=== PATIENT | male | born 1960 | race Caucasian/White ===

== ENCOUNTER → 2017-02-10 | Outpatient (CLI) | payer MEDICARE, OTHER ==
[~2017-02-10] MED LIST: AMITIZA24 MCG PO; ATARAX PO; BACID PO; BACITRACIN3.5 G1 TOP; CALCIUM CITRATE1 T12 PO; CARAFATE PO; CENTANY30 G1 TP; CLARITIN10 M2 PO; FLONASE 0.05% N16 G1; GABAPENTIN300 M2 PO; LACTULOSE10 G/15 ML PO; LEVOTHROID50 MCG PO; LOPID600 MG PO; MIACALCIN4 ML; NEXIUM20 MG PO; PAXIL PO; POLYETHYLENE G527 GM; POLYETHYLENE GLY1 GM MC; PRILOSEC PO; PRILOSEC20 MG PO; PROZAC10 MG PO; SENNA8.6 M1 PO; TRIDESILON 0.0515 G2 EXT; VASOTEC; VASOTEC PO; VIT D PO; [UNRECOGNIZED DRUG - REMARK]
--- NOTE | ~2017-02-10 | CT4 ---
[facility] A Service of [facility] & [facility] RADIOLOGY TEXT RESULTS PATIENT: RADHA WASHBURN LOCATION: [facility] : 56 UNIT #: [id number] AGE: [address]: ELMA BALDERAS SEX: M ORDER DR: [id number] [facility] [address] [place], [place] [address] [id number] O MR#: [id number] Acc #: [id number] NAME: RADHA WASHBURN : 1960 SEX: M STUDY DATE/TIME: 02/10/2017 13:42 UNIT: [facility] ROOM: STUDY DESCRIPTION: CT Abd and Pelv Wo Cont Attending Physician: Elma Balderas Referring Physician: Elma Balderas Ordering Physician: Staff Doctor Not On Primary Care Physician: Lyndon Servin Sr., M.D. MEDICAL IMAGING REPORT This report is preliminary unless electronic signature is present EXAM Abdomen and pelvis CT, no contrast. DATE OF EXAM 02/10/2017 INDICATIONS 56-year-old male with a history of renal stones. 6-month follow up of renal stones. History of malignancy and seizures. [place] patient. TECHNIQUE Noncontrast CT of the abdomen and pelvis was performed and compared with 07/30/2016. NOTE: This CT exam was performed with one or more of the following radiation dose reduction techniques: automatic exposure control, adjustment of mA and/or kV according to patient size, and iterative reconstruction. FINDINGS CT ABDOMEN: Exam degraded by noncontrast technique. There is motion degradation. Included lung bases demonstrate scattered areas of atelectasis. No effusion or dense consolidation. There has been interval improvement of aeration of the lung bases since the prior study. No pericardial effusion. Aorta demonstrates no aneurysm. The spleen and adrenal glands are unremarkable. The pancreas is unremarkable. Gallbladder contracted. Liver unremarkable. Kidneys demonstrate nonobstructing stones in the right kidney. There are multiple low-attenuation lesions in both kidneys most characteristic of cysts. No hydronephrosis on either side. Visualized ureters are unremarkable. CT PELVIS: Bladder unremarkable. There is no drainable fluid collection in the pelvis or free fluid. There is a large stool ball in the rectum, and there is a large stool burden in the rectosigmoid colon. Imaging [facility] A Service of [facility] & [facility] RADIOLOGY TEXT RESULTS PATIENT: RADHA WASHBURN LOCATION: [facility] : 56 UNIT #: [id number] AGE: [address]: ELMA BALDERAS SEX: M ORDER DR: features are most characteristic of constipation or perhaps fecal impaction and should be correlated with physical exam. The stool ball in the rectosigmoid colon extends over a craniocaudal distance of 18.6 cm and an AP distance of 8.1 cm. There is mass effect upon the bladder which is displaced anteriorly. No inflammatory change of the bowel or bowel obstruction. Appendix not clearly identified, but no secondary sign of appendicitis or inflammatory change in the right lower quadrant. Postop changes related to the small bowel noted. Inguinal canals are unremarkable. There is a compression fracture deformity of L1 that is chronic. IMPRESSION 1. Nonobstructing stones in the right kidney. No hydronephrosis on either side. 2. Large stool ball in the rectosigmoid colon. This may reflect simply advanced constipation. Possibility of fecal impaction is raised and should be correlate with physical exam. No bowel obstruction. 3. Appendix not identified. No secondary sign of appendicitis. 4. Chronic compression fracture of L1. 5. Not mentioned above, there is distension of the stomach with air and apparent fluid and food debris. Similar findings were seen on the prior study. Dictated by... Daryn Wesley M.D. THIS IS AN ELECTRONICALLY VERIFIED REPORT Daryn Wesley M.D. at 02/10/2017 7:17 PM Jose TD: 02/10/2017 16:20 JOB #: [id number] MEDICAL IMAGING REPORT Page 1 of 1 COPY
== END | disposition home or self-care (01) ==
LOC: CCAT 13:23
DX: N20.0 Calculus of kidney (principal); M48.56XA Collapsed vertebra, not elsewhere classified, lumbar region, initial encounter for fracture; K31.89 Other diseases of stomach and duodenum
CPT/HCPCS: 74176

== ENCOUNTER → 2017-02-11 | Outpatient (CLI) | payer MEDICARE, OTHER | END | disposition home or self-care (01) | LOC: CSSDAY 13:06 | DX: M81.0 Age-related osteoporosis without current pathological fracture (principal) | CPT/HCPCS: 96372; J0897 ==